=== PATIENT | female | born 1980 | race Caucasian/White ===

== ENCOUNTER → 2019-08-17 | Outpatient (CLI) | payer SELFPAY ==
[~2019-08-17] MED LIST: ADAL40PE SQ; DEXT20TA2 PO; LEVO100T5 PO
--- NOTE | 2019-08-17 19:18 | RAD ---
CHEST PA LATERAL Clinical indications: Shortness of air COMPARISON: December 29, 2006. Findings: Perihilar haziness is seen bilaterally slightly more prominent on the right side consistent with bilateral perihilar lung infiltrate or pulmonary edema. No peripheral lung consolidation or pleural effusion is seen. No pneumothorax is evident. Heart size and pulmonary vasculature and mediastinum and both stefani are unremarkable. The osseous structures are intact. IMPRESSION: Bilateral perihilar haziness which may represent pulmonary edema or lung infiltrate. Electronically signed by: Carlos Peoples MD (08/17/2019 7:15 PM) [facility] [place]
== END | disposition home or self-care (01) ==
LOC: DXRAD 18:48
PROVIDERS: ATTEND Family Medicine
DX: R06.02 Shortness of breath (principal)
CPT/HCPCS: 71046